=== PATIENT | female | born 1955 | race Hispanic/Latino ===

== ENCOUNTER 2018-05-27 19:50 | Emergency (ER) | payer MEDICARE, OTHER, MEDICAID ==
[2018-05-27 20:46] LABS: Bilirubin Negative (Negative); Blood, Urine Negative (Negative); Clarity CLEAR (Clear); Glucose, Urine (Dipstick) Negative (Negative); Leukocyte Moderate (Negative); Nitrite Negative (Negative); Protein, Urine (Dipstick) Negative (Neg-Trace); Specific Gravity, Urine 1.008 (1.002-1.036); Urobilinogen 0.2 mg/dL (0.2-1.0)
[2018-05-27 20:49] LABS: Bacteria/HPF None Seen HPF (None Seen); Hyaline Casts/LPF 0-3 HYALINE CAST LPF (0-3 Hyaline); Pathc Cast-AUWi Flag 0.14 (0-2.49); RBC/HPF 0-3 HPF (0-3); Squamous Epithelial 0-3 HPF (0-3)
== END 2018-05-27 21:11 | disposition home or self-care (01) ==
LOC: ERS 19:50
DX: N39.0 Urinary tract infection, site not specified (principal); I10 Essential (primary) hypertension; E11.9 Type 2 diabetes mellitus without complications; E03.9 Hypothyroidism, unspecified; F31.9 Bipolar disorder, unspecified; F17.210 Nicotine dependence, cigarettes, uncomplicated
CPT/HCPCS: 81003; 81015; 87086; 99283

== ENCOUNTER 2019-04-27 09:54 | Inpatient (IN) | payer MEDICARE, OTHER, MEDICAID ==
[2019-04-27 10:46] LABS: #Eosinphils 0.6 thou/uL (0.0-0.7); #Lymphocytes 1.7 thou/uL (1.20-3.40); #Monocytes 0.8 thou/uL (0.11-0.59); #Neutrophils 3.9 thou/uL (1.40-6.50); %Basophils 0.3 % (0.0-1.0); %Eosinophils 8.3 % (0.0-10.0); %Lymphocytes 24.6 % (21.0-51.0); %Neutrophils 55.9 % (42.0-75.0); Hemoglobin 11.8 g/dL (12.0-16.0); Mean Corpuscular HGB CONC 33.9 g/dL (32.0-36.0); Mean Corpuscular Hemoglobin 33.8 pg (27.0-31.0); Mean Corpuscular Volume 99.8 fL (78.0-98.0); Mean Platelet Volume 8.4 fL (7.4-10.4); Platelet Count 235 thou/uL (130-400); RBC Distribution Width 12.8 % (11.5-14.5); Red Blood Cell (RBC) Count 3.49 mill/uL (4.20-5.40); White Blood Cell (WBC) Count 7.1 thou/uL (4.8-10.8)
[2019-04-27 11:03] LABS: ALT (SGPT) 11 U/L (8-55); AST (SGOT) 21 U/L (5-34); Albumin 3.4 g/dL (3.4-4.8); Alkaline Phosphatase 193 U/L (40-110); Anion Gap 16 mmol/L (10-20); BUN (Urea Nitrogen) 45 mg/dL (9.8-20.1); Bilirubin, Total 0.3 mg/dL (0.2-1.2); Calc. Creatinine Clearance 0 mL/min (70-130); Calcium 9.4 mg/dL (7.8-10.44); Carbon Dioxide 24 mmol/L (23-31); Chloride 92 mmol/L (98-107); Estimated GFR-MDRD 11; Globulin 3.4 g/dL (2.4-3.5); Glucose 201 mg/dL (80-115); Potassium 5.4 mmol/L (3.5-5.1); Protein, Total 6.8 g/dL (6.0-8.3); Sodium 127 mmol/L (136-145)
--- NOTE | 2019-04-27 11:09 | RAD ---
Portable chest: HISTORY: Cough COMPARISON: 03/20/2018 FINDINGS:Borderline cardiomegaly. Vascularity is prominent. Streaky atelectasis in the mid left lung. No focal infiltrate. No effusion. IMPRESSION: No acute finding
[2019-04-27] MEDS ORDERED: Ondansetron PF 4 MG/2 ML Vial ONE (11:14)
--- NOTE | 2019-04-27 11:14 | CT ---
CT head without contrast: Multiple axial tomograms obtained through the head without IV enhancement. INDICATIONS: Fall with injury to head. Altered mental status. COMPARISON: 03/11/2009 CT head and MRI of 03/08/2009 FINDINGS: Ventricles have normal size and position. 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 This is stable. No evidence of intracranial mass, hemorrhage, edema, or infarct. Visualized sinuses and mastoids appear clear. Bony calvarium appears unremarkable. IMPRESSION: No acute finding
[2019-04-27 11:34] LABS: Bilirubin Negative (Negative); Blood, Urine Negative (Negative); Clarity Turbid (Clear); Glucose, Urine (Dipstick) Normal (Negative); Leukocyte Negative Leu/uL (Negative); Nitrite Negative (Negative); Protein, Urine (Dipstick) 10 mg/dL (Neg-Trace); Urobilinogen Normal mg/dL (Less than 2)
[2019-04-27 14:02] LABS: Troponin I 0.019 ng/mL (< 0.028)
[2019-04-27] MEDS ORDERED: Dextrose 50% Abboject 50 ML SYRINGE SLOW IVP PRN (15:24)
[2019-04-27] MEDS ORDERED: Dextrose 5% in Water 1,000 ML IV PRN (15:24)
[2019-04-27 15:59] VITALS: BMI 52.0
[2019-04-27 17:00] LABS: Potassium, Urine 43.8 mmol/L; Sodium, Urine Less than 20 mmol/L (Not Available)
[2019-04-27] MEDS: Sodium Chloride 0.9% 1,000 ML IV SCH (17:53)
--- NOTE | 2019-04-27 18:27 | HP ---
SUBJECTIVE: The patient is seen and examined in the emergency room. CHIEF COMPLAINT: Altered mental status and weakness in her lower extremities. HISTORY OF PRESENT ILLNESS: The patient is a 64-year-old female, who had a rotator cuff surgery by Dr. Lovett 2 days ago at [facility]. She did quite well after the surgery, but she started having some mental status change according to her mother. Apparently, this morning, she was quite confused, and the mother decided to call EMS and take her to the emergency room for further evaluation. She was kind of lethargic and confused. According to her, her blood glucose was about 200, and she has some wheezing and stridor bilaterally in upper lungs. Apparently, DuoNebs were used in ambulance, and her room air oxygenation was 89% and improved to 99% on 2 L by nasal cannula. The patient was taking Tylenol No. 3 since surgery, and she did not have any fever or chills, but she noticed some jerking on the whole body on and off. She denied any chest pain. She denied any shortness of breath. PAST MEDICAL HISTORY: 1. Type 2 diabetes mellitus. 2. Hypertension. 3. Hypothyroidism. PAST SURGICAL HISTORY: 1. Rotator cuff surgery on the right arm 2 days ago. 2. Lap-Band in 2005. 3. Removal of Lap-Band in 2016. 4. Left foot bone spur removal. PSYCHIATRIC HISTORY: Positive for bipolar disorder. SOCIAL HISTORY: She denies any alcohol intake, but she smokes 1 pack per day. She denies any illicit drug use. MEDICATIONS: At the time of admission: 1. Aspirin 81 mg once a day. 2. Gabapentin 100 mg 3 times a day. 3. Levothyroxine 88 mcg once a day. 4. Tylenol No. 3 one tablet, sometimes two tablets every 4 hours p.r.n. 5. Atorvastatin 20 mg at bedtime. 6. Calcitriol 0.25 mcg once a day. 7. Glipizide 10 mg once a day. 8. Losartan 25 mg once a day. 9. Metoprolol succinate extended-release 24 hours 50 mg once a day. 10. Quetiapine 400 mg, unknown frequency. ALLERGIES: LISINOPRIL, WHICH CAUSED RASH. PRIMARY CARE PHYSICIAN: Dr. Bradley. SURROGATE DECISION MAKER: The patient's mother, Mahendra Omalley. FAMILY HISTORY: Mother has arthritis. She is still alive. Father at the age of 79 of heart attack. REVIEW OF SYSTEMS: All systems were reviewed, and they are negative except for those symptoms which are mentioned at HPI. PHYSICAL EXAMINATION: VITAL SIGNS: Blood pressure is 127/77, pulse is 93, respirations 16, temperature is 98.7 orally, pain is 0, O2 saturation 95% on 4 L of oxygen. HEENT: Head is atraumatic and normocephalic. Eyes are PERRLA. Sclerae are nonicteric. Conjunctivae are pinkish. Oral mucosa is somewhat dry. NECK: Supple and obese. LUNGS: Bilateral rales and wheezes present. HEART: S1 and S2 are normal. No S3. No S4. ABDOMEN: Obese, nondistended, and nontender. Bowel sounds are present. No organomegaly. EXTREMITIES: 1+ peripheral edema, similar bilaterally on both lower extremities. NEUROLOGIC: She follows my commands. She is alert and oriented x3. There are no any motor deficits present during my evaluation. She improved significantly since the time when she had her altered mental status this morning. LABORATORY DATA: Showed white count of 7.1, hemoglobin 11.8, hematocrit 34.8, MCV 99.8, platelet count 235. Sodium of 127, potassium 5.4, chloride 92, CO2 of 24, BUN 45, creatinine 4.05, glucose 201, alkaline phosphatase 193. The rest of chemistry is within normal limits. Troponin I less than 0.010 and 0.019. Urinalysis showed clarity turbid, and the rest of the urinalysis is within normal limits. CT of the brain, no acute findings. Chest x-ray, this was personally reviewed by me, showed borderline cardiomegaly and increased vascularity in both lungs. No effusions. EKG showed normal sinus rhythm with ventricular rate of 89 beats per minute. No ischemic changes. Flipped T-waves in V1, this is isolated finding. IMPRESSION: 1. Altered mental status, improved significantly, almost back to normal status with IV hydration. 2. Dfgjn-sf-dlwoftm renal insufficiency, stage 3. 3. Hyperkalemia. 4. Hyponatremia and hypochloremia, that are related to worsening kidney function and fluid overload. 5. Macrocytic anemia. We will check vitamin B12 status and folic acid level. 6. Diabetes mellitus, type 2, uncontrolled. 7. Hypertension. 8. Hypothyroidism. PLAN: Full admission to the telemetry floor. Condition is fair. Activities, bedrest and bathroom privileges. We will do strict input and output. She received 1 L of fluids in the emergency room. We will continue 75 mL of normal saline per hour. We will do oral fluid restriction to 1000 mL. Check urine osmolality and serum osmolality along with urine lytes, and we will check folic acid and vitamin B12 levels. The case was discussed with the patient's humid system operator, Dr. Bledsoe, who is coming to see the patient tonight or tomorrow morning. She will stay on renal 2000 calories ADA diet. We will use SCDs for DVT prophylaxis, and no heparin since she has worsening renal failure. We will do Accu-Cheks a.c. and at bedtime and cover her with sliding scale, mild. We will do serial chemistry and CBCs daily. Job ID: [id number]
[2019-04-28 04:31] LABS: #Eosinphils 0.6 thou/uL (0.0-0.7); #Lymphocytes 1.3 thou/uL (1.20-3.40); #Monocytes 0.8 thou/uL (0.11-0.59); #Neutrophils 3.8 thou/uL (1.40-6.50); %Basophils 0.6 % (0.0-1.0); %Eosinophils 8.5 % (0.0-10.0); %Lymphocytes 20.4 % (21.0-51.0); %Monocytes 12.9 % (0.0-10.0); %Neutrophils 57.7 % (42.0-75.0); Hemoglobin 11.1 g/dL (12.0-16.0); Mean Corpuscular Hemoglobin 33.8 pg (27.0-31.0); Mean Platelet Volume 8.1 fL (7.4-10.4); Platelet Count 217 thou/uL (130-400); RBC Distribution Width 13.1 % (11.5-14.5); White Blood Cell (WBC) Count 6.5 thou/uL (4.8-10.8)
[2019-04-28 04:51] LABS: Anion Gap 13 mmol/L (10-20); BUN (Urea Nitrogen) 38 mg/dL (9.8-20.1); Calc. Creatinine Clearance 39 mL/min (70-130); Calcium 9.1 mg/dL (7.8-10.44); Carbon Dioxide 22 mmol/L (23-31); Chloride 105 mmol/L (98-107); Estimated GFR-MDRD 15; Glucose 120 mg/dL (80-115); Potassium 4.9 mmol/L (3.5-5.1); Sodium 135 mmol/L (136-145)
[2019-04-28] MEDS: Sodium Chloride 0.9% 1,000 ML IV SCH ×3 (06:32→20:48)
[2019-04-28] MEDS ORDERED: Famotidine 20 MG TAB PO SCH (09:00)
--- NOTE | 2019-04-28 09:51 | CON ---
DATE OF CONSULTATION: SERVICE: Renal Medicine. HISTORY OF PRESENT ILLNESS: Ms. 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 She was admitted because of mental status change and worsening renal dysfunction. Of interest, she recently had right rotator cuff surgery, and since that time, has been getting confused. My feeling is that this is related to her medications from her postop medications as well as for recent surgery. We are being consulted for her acute kidney injury on top of her chronic renal failure. This morning, the patient is more awake and alert. Empiric volume repletion has also been done with this patient. REVIEW OF SYSTEMS: Positive for decreased mentation. Positive for right shoulder joint pain. No chest pain. No shortness of breath. No nausea. No vomiting. Decreased appetite. Decreased energy level. No productive cough. No fever or chills. No dysuria. No urinary frequency. No shortness of breath or chest pain. No abdominal pain. HOME MEDICATIONS: Included the followin. Glipizide ER 10 mg q.a.m. 2. Seroquel, she is taking 400 mg in the morning and 900 mg at night. 3. Multivitamin daily. 4. Metoprolol ER 25 mg daily. 5. Calcitriol 0.25 mcg every other day. 6. Restasis eyedrop as directed. 7. Albuterol treatment p.r.n. 8. Calcium 600 mg once a day. 9. Zolpidem 10 mg at bedtime p.r.n. 10. She is also on atorvastatin 20 mg tablet at bedtime. PAST MEDICAL HISTORY: Includes the following; 1. 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 2. Morbid obesity. 3. Hypothyroidism ?.. 4. Bipolar disorder. 5. Type 2 diabetes mellitus. 6. History of ovarian cyst. PAST SURGICAL HISTORY: 1. Status post laparoscopic band surgery with subsequent removal and revision of lap band surgery. 2. Recently status post right rotator cuff surgery. 3. Also includes left foot surgery. SOCIAL HISTORY: The patient is single. No children. Lives in [facility] with her mom. Smoked one pack a day x30 years. Education, associated degree, medically disabled. No alcohol intake. No IV drug abuse. No blood transfusion. The patient has 6 siblings. ALLERGIES: NONE. TRAUMA: None. IMMUNIZATION: Up-to-date. HOSPITALIZATIONS: Please see past medical history. FAMILY HISTORY: No family history of ESRD. PHYSICAL EXAMINATION: VITAL SIGNS: The patient has a blood pressure of 110/78, heart rate 97, respiratory rate 18, temperature 98.3, and pulse ox 97%. GENERAL: The patient is awake, alert, comfortable, morbidly obese. SKIN: Adequate turgor. HEENT: Pinkish conjunctivae. Anicteric sclerae. NECK: No neck mass. No carotid bruits. No JVD. CHEST: No deformities. LUNGS: Clear breath sounds. HEART: Normal sinus rhythm. No murmur. No gallops. No rubs. ABDOMEN: Globular, soft, nontender. No masses. EXTREMITIES: No edema. No deformities. NEUROLOGIC: Awake, oriented to 3 spheres. Moving all extremities. No tremors. No asterixis. She has a right shoulder joint dressing. LABORATORY DATA: Laboratories of April 27, 2019; BUN 45, creatinine 4.05, and sodium 127. On April 28, 2019, sodium 135, potassium 4.9, chloride 105, carbon dioxide 22, BUN 38, creatinine 3.07, glucose 120, and calcium 9.1. White count 6.5, hemoglobin 11.1. IMAGING: On April 27, 2019, chest x-ray shows no CHF. CT scan of the brain shows no acute intracranial abnormality. ASSESSMENT AND PLAN: 1. Mental status change - this could be secondary from her pain medications or postop medications after her right shoulder surgery. She is mentating better now. 2. Acute kidney injury - most likely a hemodynamically-mediated renal dysfunction. Renal function was much improved with IV volume repletion. Continue current IV repletion with this patient, currently on normal saline at 75 mL/hour. Recheck basic metabolic profile in a.m. 3. Overall agree with current management. Continue current management. We will recheck basic metabolic profile in a.m. Job ID: [id number]
--- NOTE | 2019-04-28 10:29 | PDOC.HOSPP ---
- Subjective Encounter Date: 04/28/19 (f/u encephalopathy) Encounter Time: 10:27 - Objective Vital Signs & Weight: Vital Signs (12 hours) Temp Pulse Resp BP Pulse Ox 04/28/19 09:05 98.2 F 92 18 137/84 99 04/28/19 03:55 98.3 F 97 18 110/78 97 04/28/19 02:45 93 14 100 04/27/19 23:04 89 18 94 L Weight Weight 300 lb Result Diagrams: 04/28/19 04:13 04/28/19 04:13 EKG Reviewed by me: Yes (tele - sinus 80-90's) Hospitalist ROS - Review of Systems Constitutional: denies: fever, chills, sweats, weakness, malaise, other Cardiovascular: denies: chest pain, palpitations, orthopnea, paroxysmal noc. dyspnea, edema, light headedness, other Gastrointestinal: denies: nausea, vomiting, abdominal pain, diarrhea, constipation, melena, hematochezia, other - Medication Medications: Active Medications Generic Name Dose Route Start Last Admin Trade Name Freq PRN Reason Stop Dose Admin Albuterol/Ipratropium 3 ml 04/27/19 18:30 04/28/19 07:56 Duoneb NEB 3 ml [id number] ANAI Administration Famotidine 20 mg 04/28/19 09:00 04/28/19 09:16 Pepcid PO 20 mg DAILY ANAI Administration Sodium Chloride 1,000 mls @ 75 mls/hr 04/27/19 15:24 04/28/19 09:16 Normal Saline 0.9% IV 1,000 mls .[id number] ANAI Administration - Exam General Appearance: NAD Heart: RRR, no murmur Respiratory: CTAB, no wheezes, no rales, no ronchi Gastrointestinal: soft, non-tender, non-distended, normal bowel sounds Extremities: no cyanosis, no clubbing, no edema Extremities - other findings: RUE in sling Psychiatric - other findings: easily falls asleep Hosp A/P (1) Encephalopathy Code(s): G93.40 - ENCEPHALOPATHY, UNSPECIFIED Status: Acute (2) Qolhv-kw-jwyztml kidney injury Code(s): N17.9 - ACUTE KIDNEY FAILURE, UNSPECIFIED; N18.9 - CHRONIC KIDNEY DISEASE, UNSPECIFIED Status: Acute Qualifiers: Chronic kidney disease stage: stage 4 (severe) (3) Hypertension Code(s): I10 - ESSENTIAL (PRIMARY) HYPERTENSION Status: Chronic Qualifiers: Hypertension type: essential hypertension Qualified Code(s): I10 - Essential (primary) hypertension (4) Diabetes mellitus Code(s): E11.9 - TYPE 2 DIABETES MELLITUS WITHOUT COMPLICATIONS Status: Chronic Qualifiers: Diabetes mellitus type: type 2 Diabetes mellitus laborer marine terminal insulin use: without alf use Diabetes mellitus complication status: with kidney complications (5) Anemia Code(s): D64.9 - ANEMIA, UNSPECIFIED Status: Chronic Qualifiers: Chronic kidney disease stage: stage 4 (severe) (6) Hyponatremia Code(s): E87.1 - HYPO-OSMOLALITY AND HYPONATREMIA Status: Acute (7) Hypothyroid Code(s): E03.9 - HYPOTHYROIDISM, UNSPECIFIED Status: Chronic Qualifiers: Hypothyroidism type: unspecified Qualified Code(s): E03.9 - Hypothyroidism , unspecified - Plan - Encephalopathy improved- monitor, tylenol prn for pain for now Appreciate Nephrology consult - on IVF with improvement in creatinine today - hold home ARB - hold home aspirin for now DM - controlled, hold home med Hypothyroid - check TSH tomorrow HTN - controlled - resume home meds Bipolar d/o - check home dosing of seroquel - RN to do - as the one in the computer is a high dose. Resume when this is clarified PT/OT orders placed continue sling/post-op instructions for her surgery last week dvt prophy - lovenox gi prophy - on H2 swati but do not see this as a home med - will d/c code status full pt is at high risk in current condition reviewed plan of care with patient, no questions or further needs at end of eval. Addendum - RN confirmed with pharmacy that pt does take 800 mg seroquel HS - ordered
[2019-04-28] MEDS: Ondansetron PF 4 MG/2 ML Vial IVP PRN (12:10)
--- NOTE | 2019-04-28 15:53 | PDOC.EVN ---
Event Note - Event Note Event Note: Rn reports that pt continues to be drowsy and sister requesting psych consult regarding bipolar meds. Psychiatry not available. Will reduce the seroquel to 200 mg HS. Continue to optimize renal function
[2019-04-28] MEDS: HumaLOG 300 UNITS/3 ML VIAL SC PRN (18:07)
[2019-04-28] MEDS: Acetaminophen 325 MG TAB PO PRN (20:48)
[2019-04-28] MEDS: Atorvastatin Calcium 20 MG TAB PO SCH (20:49)
[2019-04-29] MEDS: Ondansetron PF 4 MG/2 ML Vial IVP PRN (01:57)
[2019-04-29] MEDS: Levothyroxine Sodium 88 MCG TAB PO SCH (06:15)
[2019-04-29] MEDS: Calcitriol 0.25 MCG CAP PO SCH (08:37)
--- NOTE | 2019-04-29 08:43 | PRG ---
DATE OF SERVICE: 04/29/2019 SUBJECTIVE: Ms. Omalley is a 64-year-old female, who was seen for her acute kidney injury on top of her chronic renal failure. She had a superimposed hemodynamically-mediated renal dysfunction. Creatinine was initially noted at 4.05, which is now improved to a most recent value of 3.07. We are continuing current IV hydration with this patient. She has had episodes of confusion, decreased mentation. Her antipsychotic medications have been adjusted downwards. Of interest, the patient also underwent a right shoulder arthroscopic surgery recently. No other complaints today. She feels tired. OBJECTIVE: VITAL SIGNS: Blood pressure 126/86, heart rate 91, respiratory rate 18, temperature 98.1, pulse ox 100%. GENERAL: Noted to be awake, alert, comfortable, not in distress. SKIN: Adequate turgor. HEENT: Pinkish conjunctivae. Anicteric sclerae. No neck mass. No carotid bruits. No JVD. CHEST: No deformities. LUNGS: Clear breath sounds. HEART: Normal sinus rhythm. No murmurs, gallops, or rubs. ABDOMEN: Globular, soft, nontender, no masses. EXTREMITIES: No edema, no deformities. MEDICATIONS: Medications of April 29, 2019, was reviewed. LABORATORY DATA: April 28, 2019, sodium 135, potassium 4.9, chloride 105, carbon dioxide 22, BUN 38, creatinine 3.07, calcium 9.1. Hemoglobin 11.1. ASSESSMENT AND PLAN: 1. Acute kidney injury on top of her chronic renal failure. She has a superimposed hemodynamically-mediated dysfunction. Improved with IV hydration. We will recheck basic metabolic profile again in a.m. Continue to hold off any diuretics or EFRAÍN inhibitors with this patient. No indication for any dialytic intervention. Her chronic renal failure is secondary from lithium nephrotoxicity. 2. Borderline anemia. We will simply observe this. 3. Decreased mentation-this could be related from her medications. Adjustment of her Seroquel has been done. Job ID: [id number] [facility]
[2019-04-29 09:10] LABS: #Eosinphils 0.3 thou/uL (0.0-0.7); #Lymphocytes 0.9 thou/uL (1.20-3.40); #Monocytes 0.4 thou/uL (0.11-0.59); #Neutrophils 2.9 thou/uL (1.40-6.50); %Basophils 0.4 % (0.0-1.0); %Lymphocytes 20.2 % (21.0-51.0); %Monocytes 8.2 % (0.0-10.0); %Neutrophils 65.2 % (42.0-75.0); Hemoglobin 11.6 g/dL (12.0-16.0); Mean Corpuscular HGB CONC 33.5 g/dL (32.0-36.0); Mean Platelet Volume 8.2 fL (7.4-10.4); Platelet Count 212 thou/uL (130-400); RBC Distribution Width 13.3 % (11.5-14.5); Red Blood Cell (RBC) Count 3.42 mill/uL (4.20-5.40); White Blood Cell (WBC) Count 4.5 thou/uL (4.8-10.8)
[2019-04-29 09:28] LABS: Anion Gap 12 mmol/L (10-20); BUN (Urea Nitrogen) 29 mg/dL (9.8-20.1); Calc. Creatinine Clearance 57 mL/min (70-130); Calcium 9.3 mg/dL (7.8-10.44); Carbon Dioxide 22 mmol/L (23-31); Chloride 114 mmol/L (98-107); Estimated GFR-MDRD 23; Glucose 168 mg/dL (80-115); Potassium 5.4 mmol/L (3.5-5.1); Sodium 143 mmol/L (136-145)
--- NOTE | 2019-04-29 09:43 | PDOC.HOSPP ---
- Subjective Encounter Date: 04/29/19 (fu encephalopathy) Encounter Time: 09:40 Subjective: called by nurse this morning for pt remaining drowsy, an episode of nausea/ vomiting last night. This morning pt is seeing images and flashes in front of her. Denies any pain. - Objective Vital Signs & Weight: Vital Signs (12 hours) Temp Pulse Resp BP Pulse Ox 04/29/19 08:42 91 146/92 H 04/29/19 07:49 98.1 F 91 18 126/86 100 04/29/19 03:28 98.2 F 92 17 126/80 95 04/29/19 02:47 85 14 94 L 04/28/19 23:08 94 14 87 L Weight Weight 300 lb I&O: 04/28/19 04/29/19 04/30/19 06:59 06:59 06:59 Intake Total 2500 Output Total 3150 Balance -650 Result Diagrams: 04/29/19 08:46 04/29/19 09:46 EKG Reviewed by me: Yes (sinus 80-90's) Hospitalist ROS - Medication Medications: Active Medications Generic Name Dose Route Start Last Admin Trade Name Freq PRN Reason Stop Dose Admin Acetaminophen 650 mg 04/27/19 15:24 04/28/19 20:48 Tylenol PO 650 mg Q4H PRN Administration Headache/Fever/Mild Pain (1-3) Albuterol/Ipratropium 3 ml 04/27/19 18:30 04/29/19 07:35 Duoneb NEB 3 ml [id number] ANAI Administration Atorvastatin Calcium 20 mg 04/28/19 21:00 04/28/19 20:49 Lipitor PO 20 mg HS ANAI Administration Calcitriol 0.25 mcg 04/29/19 09:00 04/29/19 08:37 Rocaltrol PO 0.25 mcg DAILY ANAI Administration Sodium Chloride 1,000 mls @ 75 mls/hr 04/27/19 15:24 04/28/19 20:48 Normal Saline 0.9% IV 1,000 mls .[id number] ANAI Administration Insulin Human Lispro 0 units 04/27/19 15:24 04/28/19 18:07 Humalog SC 2 unit .MILD SLIDING SCALE PRN Administration Mild Correctional Scale Levothyroxine Sodium 88 mcg 04/29/19 06:00 04/29/19 06:15 Synthroid PO 88 mcg 0600 ANAI Administration Metoprolol Succinate 50 mg 04/29/19 09:00 04/29/19 08:37 Toprol Xl PO 50 mg DAILY ANAI Administration Ondansetron HCl 4 mg 04/28/19 12:00 04/29/19 01:57 Zofran IVP 4 mg Q6H PRN Administration Nausea/Vomiting Quetiapine Fumarate 200 mg 04/28/19 21:00 04/28/19 20:49 Seroquel PO 200 mg HS ANAI Administration - Exam General Appearance: NAD General - other findings: easily falls asleep, awakes and answers appropriately Heart: RRR, no murmur Respiratory: CTAB, no wheezes, no rales, no ronchi Gastrointestinal: soft, non-tender, non-distended, normal bowel sounds Extremities - other findings: RUE in brace Neurological - other findings: no gross deficits Psychiatric - other findings: easily falling asleep, Hosp A/P (1) Encephalopathy Code(s): G93.40 - ENCEPHALOPATHY, UNSPECIFIED Status: Acute (2) Xnxou-vm-goydsoi kidney injury Code(s): N17.9 - ACUTE KIDNEY FAILURE, UNSPECIFIED; N18.9 - CHRONIC KIDNEY DISEASE, UNSPECIFIED Status: Acute Qualifiers: Chronic kidney disease stage: stage 4 (severe) (3) Hypertension Code(s): I10 - ESSENTIAL (PRIMARY) HYPERTENSION Status: Chronic Qualifiers: Hypertension type: essential hypertension Qualified Code(s): I10 - Essential (primary) hypertension (4) Diabetes mellitus Code(s): E11.9 - TYPE 2 DIABETES MELLITUS WITHOUT COMPLICATIONS Status: Chronic Qualifiers: Diabetes mellitus type: type 2 Diabetes mellitus exterminator insulin use: without exterminator use Diabetes mellitus complication status: with kidney complications (5) Anemia Code(s): D64.9 - ANEMIA, UNSPECIFIED Status: Chronic Qualifiers: Chronic kidney disease stage: stage 4 (severe) (6) Hyponatremia Code(s): E87.1 - HYPO-OSMOLALITY AND HYPONATREMIA Status: Acute (7) Hypothyroid Code(s): E03.9 - HYPOTHYROIDISM, UNSPECIFIED Status: Chronic Qualifiers: Hypothyroidism type: unspecified Qualified Code(s): E03.9 - Hypothyroidism , unspecified (8) Hyperkalemia Code(s): E87.5 - HYPERKALEMIA Status: Acute - Plan -Metabolic encephalopathy (worsening renal function with recent surgery, present on arrival) appears worse today with hallucination despite improvement in creatinine - check ABG - repeat CT scan brain - Check labs including repeat potassium as elevated today, mag michael appreciate nephrology consult - continue IVF - hold home ARB - hold home aspirin for now DM - controlled, hold home med Hypothyroid - check TSH tomorrow HTN - controlled - resume home meds Bipolar d/o -seroquel dosing lowered last night - will d/c all together given current presentation PT/OT orders placed continue sling/post-op instructions for her surgery last week - per RN bandaids over surgical incisions dvt prophy - lovenox gi prophy - on H2 swati but do not see this as a home med - will d/c code status full pt is at high risk in current condition reviewed plan of care with patient, no questions or further needs at end of eval.
[2019-04-29 09:49] LABS: RBC Morphology Normal
[2019-04-29 10:11] LABS: Base Excess (BEa) -2.1 mEq/L (-2.0 to +3.0); CO2 Tension 53.2 mmHg (35.0-45.0); Calcium, Ionized 1.23 mmol/L (1.12-1.30); Hemoglobin (Hb) 11.7 g/dL (12.0-16.0); O2 Tension (PaO2) 74.9 mmHg (> 80.0); Potassium - ABG Lab 5.14 mmol/L (3.70-5.30); pH, Arterial 7.29 (7.35-7.45)
[2019-04-29 10:12] LABS: Puncture Site RRA
--- NOTE | 2019-04-29 10:42 | CT ---
EXAM: CT brain without contrast HISTORY: Hallucinations COMPARISON: 04/27/2019 TECHNIQUE: Multiple contiguous axial images were obtained and a CT of the brain without contrast. FINDINGS: The brain is normal in morphology and attenuation without focal lesions or confluent areas of infarction. There is no evidence of hydrocephalus, intracranial hemorrhage, or extra-axial fluid collection. The calvarium and overlying soft tissues are unremarkable. The visualized paranasal sinuses and masto id air cells are well aerated. IMPRESSION: No evidence of acute intracranial abnormality
--- NOTE | 2019-04-29 11:04 | RAD ---
EXAM: Single view of the chest HISTORY: Hypoxia and somnolence COMPARISON: 04/27/2019 FINDINGS: Single view of the chest shows a normal sized cardiomediastinal silhouette. There is no marko dence of consolidation, mass, or pleural effusion. The bones are unremarkable. IMPRESSION: No evidence of acute cardiopulmonary disease
[2019-04-29 11:17] LABS: Magnesium 2.5 mg/dL (1.6-2.6); Phosphorus 3.6 mg/dL (2.3-4.7); Potassium 5.4 mmol/L (3.5-5.1)
--- NOTE | 2019-04-29 11:28 | PDOC.EVN ---
Event Note - Event Note Event Note: Multiple tests performed today to evaluate the somnolence: ABG - acidotic and mildly hypercarbic CXR - normal CT brain - neg repeat labs - potassium 5.[address] Bledsoe - he requests potassium less than 6, does not want additional meds Seroquel d/c Consult to Pulmonology for consideration of bipap for the elevated CO2 - Dr. Dong to evaluate
[2019-04-29] MEDS: Sodium Chloride 0.9% 1,000 ML IV SCH (12:15)
--- NOTE | 2019-04-29 14:18 | PQF ---
AME MCCOLLUM DENA [id number] CLINICAL DOCUMENTATION IMPROVEMENT CLARIFICATION FORM: ICD-10 Updated PLEASE DO AN ADDENDUM TO THE PROGRESS NOTE WITH ANY DOCUMENTATION UPDATES OR ADDITIONS AND CARRY THROUGH TO DC SUMMARY. THANK YOU. DATE: 04/29/2019 ATTN:DR. Marion RUSHING Please exercise your independent, professional judgment in responding to the clarification form. Clinical indicators are provided on the bottom of this form for your review. Please check appropriate box(s): Acute Encephalopathy: Etiology: [ ] Hypertensive [ XX ] Metabolic [ ] Toxic [ ] Hepatic with Coma [ ] Hepatic w/o Coma [ ] Hypoxic [ ] Septic [ ] Wernickes [ ] Drug induced: [ ] Unspecified [ ] in the setting of underlying dementia [ XX ] Other (please specify) -worsening renal function and recent surgery [ ] Other diagnosis [ ] Unable to determine In addition, please specify: Present on Admission (POA): [ XX ] Yes [ ] No [ ] Unable to determine For continuity of documentation, please document condition throughout progress notes and discharge summary. Thank You. CLINICAL INDICATORS - SIGNS / SYMPTOMS / LABS / RESULTS AND LOCATION IN EMR 04/27 ED PHYSICIAN FINAL DX: ALTERED MENTAL STATUS, ACUTE ON CHRONIC RENAL FAILURE, HYPERKALEMIA. 04/27 H &P (YULIET) HPI: PT HAD ROTATOR CUFF SURGERY 2 DAYS AGO, SHE DID QUITE WELL AFTER SURGERY BUT STARTED HAVING SOME MENTAL STATUS CHANGE ACCORDING TO HER MOTHER. SHE WAS LETHARGIC AND CONFUSED. 04/28-04/29 PN (СЕРГЕЙ) A/P: 1). ACUTE ENCEPHALOPATHY 04/[address] IMPRESSION: NO EVIDENCE OF ACUTE INTRACRANIAL ABNORMALITY 04/30 CREATININE 4.05 04/28 CREATININE 3.07 04/29 CREATININE 2.20 RISK: RECENT ROTATOR CUFF SURGERY, ACUTE ON CHRONIC KIDNEY DISEASE STAGE 4, BIPOLAR DISORDER (СЕРГЕЙ/PN ) 04/29 TREATMENTS: BRAIN CT 04/29 SERIAL LABS (04/27-PRESENT) THANK YOU! RAY (This form is maintained as a part of the permanent medical record) 2014 [employer]. All Rights Reserved [email or web address] [email or web address] [phone] [facility]
--- NOTE | 2019-04-29 14:52 | CON ---
DATE OF CONSULTATION: HISTORY OF PRESENT ILLNESS: Sharon Omalley is a 64-year-old morbidly obese female, who was admitted to the hospital with apparent mental status change. She has longstanding history of bipolar disorder, ongoing tobacco abuse, and morbid obesity. She is severely decondition, can barely walk even 50 feet on a good day without getting short of breath. She was admitted on 04/27/2019, we are being consulted on 04/29/2019 regarding ongoing encephalopathy and respiratory failure. She has seen most of her doctors at [place] and [facility] here locally. PAST MEDICAL HISTORY: Diabetes, hypothyroidism, and bipolar disorder. PAST SURGICAL HISTORY: Previous surgery including rotator cuff surgery recently, previous lap band in 2005 and removed in 2017, and foot surgery. SOCIAL HISTORY: Continues to smoke a pack a day. Alcohol, none. MEDICATIONS: She has a long list of medicine from home, which is provided on a weekly basis from her pharmacy; 1. Glipizide 10. 2. Cozaar 25. 3. Lipitor 20. 4. Seroquel apparently 200 mg at nighttime. 5. Metoprolol 50. 6. Aspirin . 7. Synthroid 88. 8. Lisinopril. REVIEW OF SYSTEMS: Otherwise, unremarkable. PHYSICAL EXAMINATION: GENERAL: She is awake, alert, responsive, answers all questions appropriately, and somewhat lethargic. VITAL SIGNS: Saturations are 100% on 3 L and decreased to 2 L, temperature 98, blood pressure 156/71, respiratory rate 18, and temperature 98. CHEST: Bilateral wheezing and rhonchi. CARDIAC: Normal S1 and S2. No gallops. ABDOMEN: Massive. NEUROLOGIC: She is awake, alert, and responsive, moves all 4 extremities. LABORATORY DATA: White count 4000, H and H 11 and 34, and platelet count is 212. A pO2 is 74, pCO2 of 53, pH of 7.29, on 3 L. Creatinine is 2, BUN is 29, and glucose is 201. Thyroid function is normal. X-ray with no acute infiltrates were seen. IMPRESSION: 1. Metabolic encephalopathy, multifactorial, probably a combination of bipolar disorder and medication. 2. Obesity hypoventilation syndrome. History of sleep apnea, apparently noncompliant. 3. Chronic obstructive pulmonary disease. 4. Hypothyroidism. 5. Renal failure. PLAN: Try and minimize medication as much as possible for her bipolar disorder. I have started her on Dulera and neb treatments on the clock, EzPAP. She may benefit from nocturnal CPAP. There clearly, she needs a formal sleep study and probably outpatient followup with her primary care physician to see whether she is a candidate for BiPAP. Obviously, she is encouraged to lose weight. I will order an ammonia level. We will discuss and follow. Job ID: [id number]
[2019-04-29] MEDS: HumaLOG 300 UNITS/3 ML VIAL SC PRN (18:02)
[2019-04-29] MEDS: Mometasone/Formoterol 120 PUFF INHALER INH SCH (19:41)
[2019-04-29] MEDS: Atorvastatin Calcium 20 MG TAB PO SCH (20:13)
[2019-04-30] MEDS ORDERED: Levothyroxine Sodium 88 MCG TAB ONE (05:47)
[2019-04-30] MEDS ORDERED: hydrALAZINE 10 MG TAB ONE (05:48)
[2019-04-30] MEDS ORDERED: Lactulose 10 GM/15 ML Oral Solution PO SCH (12:45)
--- NOTE | 2019-04-30 13:08 | PRG ---
DATE OF SERVICE: 04/30/2019 SUBJECTIVE: Ms. Omalley is a 64-year-old female, being followed up for acute kidney injury on top of her chronic renal failure. She also has intermittent confusion. This morning, she is more awake. She may be encephalopathic from her underlying psychiatric problem as well as her medications. Potassium was noted to be elevated this morning. For that reason, Kayexalate with lactulose was ordered. OBJECTIVE: VITAL SIGNS: Blood pressure is 171/93, heart rate 92, respiratory rate 20, temperature 97.8, and pulse oximetry 100%. GENERAL: The patient is awake, alert, comfortable, obese, not in distress. SKIN: Adequate turgor. HEENT: Pinkish conjunctivae. Anicteric sclerae. No neck mass. No carotid bruits. No JVD. CHEST: No deformities. LUNGS: Clear breath sounds. HEART: Normal sinus rhythm. No murmur. No gallops. No rubs. ABDOMEN: Globular, soft, nontender. No masses. EXTREMITIES: No edema. No deformities. LABORATORY STUDIES: On April 30, 2019, potassium was noted at 6.1. ASSESSMENT AND PLAN: 1. Hyperkalemia. Kayexalate with lactulose was ordered. We will be rechecking a basement later tonight. Recheck basement also in a.m. 2. 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 Please note, she had a superimposed prerenal azotemia. There is no indication for any dialytic intervention with this patient. Continue supportive care. Continue gentle volume repletion. 3. Metabolic encephalopathy - continue to observe. Slightly improved. CAT scan of the brain showed no acute intracranial abnormality. Job ID: [id number]
[2019-04-30] MEDS: Sodium Chloride 0.9% 1,000 ML IV SCH (13:20)
--- NOTE | 2019-04-30 13:45 | PRG ---
DATE OF SERVICE: 04/30/2019 SUBJECTIVE: Morbidly obese female. This morning, she is more awake, more responsive. OBJECTIVE: VITAL SIGNS: Temperature 97, pulse 92, respirations 20. She was on nasal CPAP last night with good compliance, saturations 100%, blood pressure 170/93. CHEST: Decreased breath sounds, no wheezing. CARDIAC: Normal S1, S2. No gallops. ABDOMEN: No masses. ASSESSMENT: 1. Metabolic encephalopathy, multifactorial. 2. Sleep apnea. 3. Chronic obstructive pulmonary disease. 4. Bipolar. 5. Severe deconditioning. PLAN: Minimize sedation. Continue PT, supportive care, neb treatments, nocturnal CPAP. Job ID: [id number]
[2019-04-30 13:59] LABS: #Eosinphils 0.8 thou/uL (0.0-0.7); #Lymphocytes 1.7 thou/uL (1.20-3.40); #Monocytes 0.7 thou/uL (0.11-0.59); #Neutrophils 3.9 thou/uL (1.40-6.50); %Basophils 0.2 % (0.0-1.0); %Eosinophils 11.6 % (0.0-10.0); %Lymphocytes 23.6 % (21.0-51.0); %Monocytes 9.7 % (0.0-10.0); %Neutrophils 54.9 % (42.0-75.0); Hemoglobin 11.5 g/dL (12.0-16.0); Mean Corpuscular HGB CONC 33.1 g/dL (32.0-36.0); Mean Corpuscular Hemoglobin 34.4 pg (27.0-31.0); Mean Platelet Volume 9.1 fL (7.4-10.4); Platelet Count 211 thou/uL (130-400); RBC Distribution Width 13.6 % (11.5-14.5); Red Blood Cell (RBC) Count 3.33 mill/uL (4.20-5.40)
[2019-04-30] MEDS: HumaLOG 300 UNITS/3 ML VIAL SC PRN (14:04)
[2019-04-30] MEDS: Mometasone/Formoterol 120 PUFF INHALER INH SCH ×2 (14:44→18:45)
--- NOTE | 2019-04-30 15:33 | PDOC.HOSPP ---
- Subjective Encounter Date: 04/30/19 (f/u DAGMAR) Encounter Time: 09:30 Subjective: 64 y/o female now on HD 4 for encephalopathy, acute on chronic kidney disease, s/p shoulder surgery last week with chronic bipolar disorder. Pt with somnolence through this hospital, eval by Pulmonology yesterday and started on nocturnal cpap. also followed by Dr. Bledsoe with gentle hydration and improvement in renal function. Pt c/o nausea today, decreased appetite. Feels more awake today. Denies any pain. No BM since admission but feels like she needs to go. - Objective Vital Signs & Weight: Vital Signs (12 hours) Pulse Pulse Pulse Resp BP BP Pulse Ox 04/30/19 14:42 87 16 94 L 04/30/19 12:32 90 96 158/70 H 160/76 H 04/30/19 10:46 88 20 93 L 04/30/19 08:02 87 16 98 Weight Weight 300 lb I&O: 04/29/19 04/30/19 05/01/19 06:59 06:59 06:59 Intake Total 2500 1200 Output Total 3150 2350 Balance -650 -1150 Result Diagrams: 04/30/19 05:29 04/30/19 19:17 Additional Labs: bmp 144/6.1/113/20/26/1.98/178 Ca 9.8 EKG Reviewed by me: Yes (tele - sinus 80's) Hospitalist ROS - Medication Medications: Active Medications Generic Name Dose Route Start Last Admin Trade Name Freq PRN Reason Stop Dose Admin Acetaminophen 650 mg 04/27/19 15:24 04/28/19 20:48 Tylenol PO 650 mg Q4H PRN Administration Headache/Fever/Mild Pain (1-3) Albuterol/Ipratropium 3 ml 04/29/19 14:30 04/30/19 14:42 Duoneb EZPAP 3 ml [id number] ANAI Administration Atorvastatin Calcium 20 mg 04/28/19 21:00 04/29/19 20:13 Lipitor PO 20 mg HS ANAI Administration Calcitriol 0.25 mcg 04/29/19 09:00 04/29/19 08:37 Rocaltrol PO 0.25 mcg DAILY ANAI Administration Sodium Chloride 1,000 mls @ 75 mls/hr 04/27/19 15:24 04/30/19 13:20 Normal Saline 0.9% IV 1,000 mls .[id number] ANAI Administration Insulin Human Lispro 0 units 04/27/19 15:24 04/30/19 14:04 Humalog SC 3 unit .MILD SLIDING SCALE PRN Administration Mild Correctional Scale Levothyroxine Sodium 88 mcg 04/29/19 06:00 04/29/19 06:15 Synthroid PO 88 mcg 0600 ANAI Administration Metoprolol Succinate 50 mg 04/29/19 09:00 04/29/19 08:37 Toprol Xl PO 50 mg DAILY ANAI Administration Mometasone Furoate/Formoterol Fumar 2 puff 04/29/19 18:30 04/30/19 14:44 Dulera 200 Mcg/5 Mcg Inhaler INH Not Given BID-RT ANAI Ondansetron HCl 4 mg 04/28/19 12:00 04/29/19 01:57 Zofran IVP 4 mg Q6H PRN Administration Nausea/Vomiting - Exam General Appearance: NAD Heart: RRR, no murmur Respiratory: CTAB, no wheezes, no rales, no ronchi Gastrointestinal: soft, non-tender, non-distended, normal bowel sounds Extremities: no cyanosis, no clubbing, no edema Musculoskeletal - other findings: right arm remains in a slight Psychiatric - other findings: more awake and alert today Hosp A/P (1) Encephalopathy Code(s): G93.40 - ENCEPHALOPATHY, UNSPECIFIED Status: Acute (2) [id number] kidney injury Code(s): N17.9 - ACUTE KIDNEY FAILURE, UNSPECIFIED; N18.9 - CHRONIC KIDNEY DISEASE, UNSPECIFIED Status: Acute Qualifiers: Chronic kidney disease stage: stage 4 (severe) (3) Hypertension Code(s): I10 - ESSENTIAL (PRIMARY) HYPERTENSION Status: Chronic Qualifiers: Hypertension type: essential hypertension Qualified Code(s): I10 - Essential (primary) hypertension (4) Diabetes mellitus Code(s): E11.9 - TYPE 2 DIABETES MELLITUS WITHOUT COMPLICATIONS Status: Chronic Qualifiers: Diabetes mellitus type: type 2 Diabetes mellitus mcfp insulin use: without mcfp use Diabetes mellitus complication status: with kidney complications (5) Anemia Code(s): D64.9 - ANEMIA, UNSPECIFIED Status: Chronic Qualifiers: Chronic kidney disease stage: stage 4 (severe) (6) Hyponatremia Code(s): E87.1 - HYPO-OSMOLALITY AND HYPONATREMIA Status: Acute (7) Hypothyroid Code(s): E03.9 - HYPOTHYROIDISM, UNSPECIFIED Status: Chronic Qualifiers: Hypothyroidism type: unspecified Qualified Code(s): E03.9 - Hypothyroidism , unspecified (8) Hyperkalemia Code(s): E87.5 - HYPERKALEMIA Status: Acute - Plan -Metabolic encephalopathy appears improved today - appreciate Pulmonology evaluation and initiation of cpap - repeat CT scan yesterday negative - needs sleep study as an outpatient Appreciate nephrology consult - continue IVF as prerenal DAGMAR is improved Hyperkalemia today - reviewed with Dr. Bledsoe who requested 30 grams kayexelate and 30 ml lactulose. Repeat ordered for 19:00 DM - controlled Hypothyroid - TSH slightly low - may be due to this illness - will need outpatient f/u and recheck TSH, no change to med here HTN - controlled Bipolar d/o -seroquel dosing lowered 2 nights ago and stopped last night with improvement in mentation today. Discussed with patient/her Mom and they request Transfer to [facility] for psychiatric evaluation/treatment. Pt with long hx of bipolar d/o. Given improvement today of encephalopathy - will restart half of home night dose seroquel tonight (400 mg) and order daytime dose 200 mg with hold parameters for sedation. If pt tolerates both - resume home night dose of 800 mg tomorrow night. - transfer center notified of patient's request - pt/Mom advised that this is a process between the 2 hospitals. Nausea from earlier in the day resolved - monitor. PT/OT continue sling/post-op instructions for her surgery last week - per RN bandaids over surgical incisions dvt prophy - lovenox gi prophy - not indicated code status full pt is at high risk in current condition reviewed plan of care with patient, no questions or further needs at end of eval.
[2019-04-30] MEDS: Calcitriol 0.25 MCG CAP PO SCH (16:01)
[2019-04-30] MEDS: Levothyroxine Sodium 88 MCG TAB PO SCH (16:01)
[2019-04-30] MEDS: hydrALAZINE 20 MG/ML VIAL SLOW IVP PRN (18:09)
[2019-04-30 19:41] LABS: Anion Gap 17 mmol/L (10-20); BUN (Urea Nitrogen) 26 mg/dL (9.8-20.1); Calc. Creatinine Clearance 63 mL/min (70-130); Calcium 9.8 mg/dL (7.8-10.44); Carbon Dioxide 20 mmol/L (23-31); Chloride 113 mmol/L (98-107); Estimated GFR-MDRD 26; Glucose 178 mg/dL (80-115); Potassium 6.1 mmol/L (3.5-5.1); Sodium 144 mmol/L (136-145)
[2019-04-30 19:54] LABS: Anion Gap 14 mmol/L (10-20); BUN (Urea Nitrogen) 24 mg/dL (9.8-20.1); Calc. Creatinine Clearance 70 mL/min (70-130); Calcium 9.7 mg/dL (7.8-10.44); Carbon Dioxide 23 mmol/L (23-31); Chloride 112 mmol/L (98-107); Estimated GFR-MDRD 29; Glucose 202 mg/dL (80-115); Potassium 4.5 mmol/L (3.5-5.1); Sodium 144 mmol/L (136-145)
[2019-04-30] MEDS: Atorvastatin Calcium 20 MG TAB PO SCH (20:49)
[2019-04-30] MEDS: Ondansetron PF 4 MG/2 ML Vial IVP PRN (20:49)
[2019-05-01] MEDS: hydrALAZINE 20 MG/ML VIAL SLOW IVP PRN (03:47)
[2019-05-01] MEDS: Sodium Chloride 0.9% 1,000 ML IV SCH (03:48)
[2019-05-01] MEDS: Acetaminophen 325 MG TAB PO PRN (05:46)
[2019-05-01] MEDS: Levothyroxine Sodium 88 MCG TAB PO SCH (05:46)
[2019-05-01] MEDS: Calcitriol 0.25 MCG CAP PO SCH (08:21)
[2019-05-01] MEDS: Ondansetron PF 4 MG/2 ML Vial IVP PRN (08:28)
[2019-05-01] MEDS: Mometasone/Formoterol 120 PUFF INHALER INH SCH ×2 (08:39→18:56)
--- NOTE | 2019-05-01 08:44 | PRG ---
DATE OF SERVICE: 05/01/2019 SUBJECTIVE: Ms. Omalley is a 64-year-old female, who was admitted for mental status change. This was thought to be secondary to metabolic encephalopathy as well as from her antipsychotic medications. We are following up this patient for acute kidney injury on top of her chronic renal failure. Renal function has significantly improved. She was also noted to be mildly hyperkalemic yesterday and she was given Kayexalate. She voices no other complaints today. Her mentation is improved. OBJECTIVE: VITAL SIGNS: Blood pressure is 166/79, heart rate is 95, respiratory rate 18, temperature 98.1, and pulse ox 96%. GENERAL: Awake, comfortable, not in overt distress. SKIN: Adequate turgor. HEENT: She has pinkish conjunctivae. Anicteric sclerae. No neck mass. No carotid bruits. No JVD. CHEST: No deformities. LUNGS: Clear breath sounds. No wheezing. No crackles. HEART: Normal sinus rhythm. No murmur. No gallops or rubs. ABDOMEN: Globular, soft, nontender. No masses. EXTREMITIES: No edema. No deformities. MEDICATIONS: Medications of May 01, 2019, were reviewed. LABORATORY DATA: Laboratories of April 30, 2019, white count 7, hemoglobin 11.5. On April 30, 2019, 1917 hours, sodium 144, potassium 4.5, chloride 102, carbon dioxide 23, BUN 24, creatinine 1.79, calcium 9.7. ASSESSMENT AND PLAN: 1. Acute kidney injury, superimposed prerenal azotemia, much improved with IV hydration. Continue current management. No indication for any dialytic intervention. 2. 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 She is approaching her baseline. She is currently at stage 4 chronic renal failure. 3. Decreased mentation, much improved with adjustment of her medications. 4. Bipolar disorder. Seroquel has been resumed. Job ID: [id number]
[2019-05-01 09:09] LABS: Anion Gap 14 mmol/L (10-20); BUN (Urea Nitrogen) 22 mg/dL (9.8-20.1); Calc. Creatinine Clearance 66 mL/min (70-130); Carbon Dioxide 25 mmol/L (23-31); Chloride 112 mmol/L (98-107); Estimated GFR-MDRD 29; Glucose 192 mg/dL (80-115); Potassium 4.7 mmol/L (3.5-5.1); Sodium 146 mmol/L (136-145)
--- NOTE | 2019-05-01 09:50 | PRG ---
DATE OF SERVICE: 05/01/2019 SUBJECTIVE: Sharon Omalley is much more awake and responsive. OBJECTIVE: VITAL SIGNS: Temperature 98, pulse 95, sats 97 room air, respiratory rate 16, blood pressure 166/79. CHEST: Decreased breath sounds. No wheezing. CARDIAC: Normal S1 and S2. No gallops. ABDOMEN: No mass. LABORATORY DATA: Creatinine is 1.76. Other lytes are normal. White count is normal. IMPRESSION: 1. Chronic obstructive pulmonary disease. 2. Sleep apnea. 3. Respiratory failure. 4. Metabolic encephalopathy. 5. Bipolar disorder. She is much improved. Consider outpatient sleep study. Avoid excessive sedation, neb treatments, supportive care. We will follow. Job ID: [id number]
--- NOTE | 2019-05-01 18:23 | PDOC.HOSPP ---
- Subjective Subjective: Seen and examined. Patient knows her name. Patient knows she is at [facility]. Patient does not know what brought her into the hospital or what's gone on past several days. Patient fails to understand disease pathology of hyponatremia and continues to have polydipsia patient's renal function has improved dramatically over hospitalization with presenting creatinine of 4, now down trended 1.7. Patient sodium has improved and she is even on the high side of normal now. All of patient's outpatient care is under the care of [facility] and she wishes to follow up with them in the outpatient setting when discharge. Discussion was had about transfer from acute to [facility]. Later in the evening I was paged about epigastric discomfort that was improved and resolved with belching twice. Vital signs stable. No changes on telemetry. - Objective Vital Signs & Weight: Vital Signs (12 hours) Temp Pulse Resp BP Pulse Ox 05/01/19 15:33 98.4 F 91 17 158/77 H 95 05/01/19 12:15 98.1 F 92 16 167/79 H 93 L 05/01/19 11:41 82 16 96 05/01/19 08:36 84 16 97 05/01/19 08:16 98.1 F 95 18 166/79 H 96 Weight Weight 279 lb I&O: 04/30/19 05/01/19 05/02/19 06:59 06:59 06:59 Intake Total 1200 3913 Output Total 2350 2850 Balance -1150 1063 Result Diagrams: 04/30/19 05:29 05/01/19 08:20 Radiology Reviewed by me: Yes Hospitalist ROS - Review of Systems All other systems reviewed; all pertinent +/- noted in HPI/Subj - Medication Medications: Active Medications Generic Name Dose Route Start Last Admin Trade Name Freq PRN Reason Stop Dose Admin Acetaminophen 650 mg 04/27/19 15:24 05/01/19 05:46 Tylenol PO 650 mg Q4H PRN Administration Headache/Fever/Mild Pain (1-3) Albuterol/Ipratropium 3 ml 04/29/19 14:30 05/01/19 17:10 Duoneb EZPAP Not Given [id number] ANAI Atorvastatin Calcium 20 mg 04/28/19 21:00 04/30/19 20:49 Lipitor PO 20 mg HS ANAI Administration Calcitriol 0.25 mcg 04/29/19 09:00 05/01/19 08:21 Rocaltrol PO 0.25 mcg DAILY ANAI Administration Hydralazine HCl 5 mg 04/30/19 12:37 05/01/19 03:47 Apresoline SLOW IVP 5 mg Q6H PRN Administration SBP Greater Than 180 Insulin Human Lispro 0 units 04/27/19 15:24 04/30/19 14:04 Humalog SC 3 unit .MILD SLIDING SCALE PRN Administration Mild Correctional Scale Levothyroxine Sodium 88 mcg 04/29/19 06:00 05/01/19 05:46 Synthroid PO 88 mcg 0600 ANAI Administration Metoprolol Succinate 50 mg 04/29/19 09:00 05/01/19 08:21 Toprol Xl PO 50 mg DAILY ANAI Administration Mometasone Furoate/Formoterol Fumar 2 puff 04/29/19 18:30 05/01/19 08:39 Dulera 200 Mcg/5 Mcg Inhaler INH 2 puff BID-RT ANAI Administration Ondansetron HCl 4 mg 04/28/19 12:00 05/01/19 08:28 Zofran IVP 4 mg Q6H PRN Administration Nausea/Vomiting Quetiapine Fumarate 200 mg 05/01/19 09:00 05/01/19 08:21 Seroquel PO 200 mg DAILY ANAI Administration Quetiapine Fumarate 400 mg 04/30/19 21:00 04/30/19 21:24 Seroquel PO 400 mg HS ANAI Administration - Exam General Appearance: NAD, awake alert Eye: PERRL ENT: normocephalic atraumatic, moist mucosa Neck: supple, symmetric, no lymphadenopathy Heart: RRR, no murmur, no gallops, no rubs Respiratory: CTAB, no wheezes, no rales, no ronchi, normal chest expansion Gastrointestinal: soft, non-tender, non-distended, no guarding, no rigidity Extremities: 1+ LE edema Skin: no lesions, no rashes Neurological: cranial nerve grossly intact, no focal deficits Musculoskeletal: generalized weakness Musculoskeletal - other findings: Right shoulder in sling Psychiatric: normal affect, oriented to person, oriented to place. negative: normal behavior Hosp A/P (1) [id number] kidney injury Code(s): N17.9 - ACUTE KIDNEY FAILURE, UNSPECIFIED; N18.9 - CHRONIC KIDNEY DISEASE, UNSPECIFIED Status: Acute Qualifiers: Chronic kidney disease stage: stage 4 (severe) (2) Encephalopathy Code(s): G93.40 - ENCEPHALOPATHY, UNSPECIFIED Status: Acute (3) Hyperkalemia Code(s): E87.5 - HYPERKALEMIA Status: Acute (4) Hyponatremia Code(s): E87.1 - HYPO-OSMOLALITY AND HYPONATREMIA Status: Acute (5) Anemia Code(s): D64.9 - ANEMIA, UNSPECIFIED Status: Chronic Qualifiers: Chronic kidney disease stage: stage 4 (severe) (6) Diabetes mellitus Code(s): E11.9 - TYPE 2 DIABETES MELLITUS WITHOUT COMPLICATIONS Status: Chronic Qualifiers: Diabetes mellitus type: type 2 Diabetes mellitus long term care social worker insulin use: without long term care social worker use Diabetes mellitus complication status: with kidney complications (7) Hypertension Code(s): I10 - ESSENTIAL (PRIMARY) HYPERTENSION Status: Chronic Qualifiers: Hypertension type: essential hypertension Qualified Code(s): I10 - Essential (primary) hypertension (8) Hypothyroid Code(s): E03.9 - HYPOTHYROIDISM, UNSPECIFIED Status: Chronic Qualifiers: Hypothyroidism type: unspecified Qualified Code(s): E03.9 - Hypothyroidism , unspecified - Plan Plan: medical unit with telemetry nephrology consultation, recommendations appreciated pulmonology/critical-care consultation, recommendations appreciated patient's renal function and sodium has improved dramatically with maximal medical therapy by nephrology fluid restriction patient's on CPAP QHS per pulmonology with improved symptoms, may benefit from sleep study in the outpatient setting continue current plan of care G.I. and DVT prophylaxis glucose control with sliding-scale coverage restarted on mood stabilizing medications
[2019-05-01] MEDS: HumaLOG 300 UNITS/3 ML VIAL SC PRN (18:27)
[2019-05-01] MEDS ORDERED: Sodium Chloride 0.9% 10 ML ONE (20:49)
[2019-05-01] MEDS: Atorvastatin Calcium 20 MG TAB PO SCH (21:48)
[2019-05-02] MEDS: Acetaminophen 325 MG TAB PO PRN (02:57)
[2019-05-02] MEDS: Levothyroxine Sodium 88 MCG TAB PO SCH (05:45)
[2019-05-02 07:34] LABS: Anion Gap 13 mmol/L (10-20); BUN (Urea Nitrogen) 23 mg/dL (9.8-20.1); Calc. Creatinine Clearance 64 mL/min (70-130); Calcium 9.6 mg/dL (7.8-10.44); Carbon Dioxide 25 mmol/L (23-31); Chloride 108 mmol/L (98-107); Estimated GFR-MDRD 27; Glucose 152 mg/dL (80-115); Sodium 142 mmol/L (136-145)
--- NOTE | 2019-05-02 08:34 | PRG ---
DATE OF SERVICE: 05/02/2019 SUBJECTIVE: Sharon Omalley is a 64-year-old morbidly obese female, much better, encephalopathy pretty much resolved. OBJECTIVE: VITAL SIGNS: Saturations are 92% on room air, respiratory rate 20, temperature 97, pulse 95, blood pressure 130/60. CHEST: No wheezing, crackles. CARDIAC: Normal S1, S2. No gallops. ABDOMEN: No masses. IMPRESSION: 1. Respiratory failure, multifactorial. 2. Hypoventilation syndrome. 3. Obstructive sleep apnea. 4. Chronic obstructive pulmonary disease. 5. Renal failure. 6. Bipolar. PLAN: She was requested to have an outpatient sleep study done. Otherwise, she can be discharged home any time. PT, supportive care. Job ID: [id number]
[2019-05-02] MEDS: Mometasone/Formoterol 120 PUFF INHALER INH SCH (08:55)
[2019-05-02] MEDS: Calcitriol 0.25 MCG CAP PO SCH (09:05)
--- NOTE | 2019-05-02 09:54 | PRG ---
DATE OF SERVICE: 05/02/2019 SUBJECTIVE: Ms. Omalley is a 64-year-old female, who was seen for an acute kidney injury on top of her chronic renal failure. She had a superimposed hemodynamically-mediated renal dysfunction. This improved with gentle volume repletion. In addition, her creatinine is noted to be 1.68 mg% today. She has also had intermittent confusion which is actually resolved. No complaints of chest pain or shortness of breath. OBJECTIVE: VITAL SIGNS: Blood pressure 132/60, heart rate 95, respiratory rate 20, temperature 97.9, and pulse ox 92%. GENERAL: The patient is awake, alert, comfortable, not in overt distress. SKIN: Adequate turgor. HEENT: She has pinkish conjunctivae. Anicteric sclerae. NECK: No neck mass. No carotid bruits. No JVD. CHEST: No deformities. LUNGS: Clear breath sounds. HEART: Normal sinus rhythm. No murmurs, gallops, or rubs. ABDOMEN: Globular, soft, nontender. No masses. EXTREMITIES: Trace edema. MEDICATIONS: Medications of May 02, 2019, was reviewed. LABORATORY DATA: Laboratories of April 30, 2019; hemoglobin 11.5. May 02, 2019; sodium 142, potassium 4, chloride 108, carbon dioxide 25, BUN 23, creatinine 1.86, glucose 152, calcium 9.6. ASSESSMENT AND PLAN: 1. Acute kidney injury - superimposed hemodynamically-mediated renal dysfunction. Renal function is much improved. Continue current management. 2. 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 She is near baseline. Currently, she is at stage IV chronic renal failure. Continue supportive care. Low-salt, low-protein diet. 3. Mental status change - resolved. 4. Agree with plan discharge. We will follow up this patient in the [facility]al [facility]. Job ID: [id number]
[2019-05-02 12:15] VITALS: BP 175/98; TEMP 98
--- NOTE | 2019-05-03 15:15 | DIS ---
DATE OF ADMISSION: 04/27/2019 DATE OF DISCHARGE: 05/02/2019 REASON FOR HOSPITALIZATION: Generalized weakness and altered mental status. SIGNIFICANT FINDINGS: The patient was found to be in acute renal failure and acute hyponatremia. PROCEDURES PERFORMED AND TREATMENTS RENDERED: The patient was admitted to the hospital for maximum medical therapy: Please see full history and physical, consultation notes and progress notes from all specialists and Internal Medicine for full details. The patient initially diagnosed with acute kidney injury with a creatinine of 4.05 on admission. The patient also with hyponatremia as low as 127 on admission. The patient was diagnosed with encephalopathy and confusion and this is likely secondary to a combination of metabolic encephalopathy from renal failure and hyponatremia. The patient was seen and evaluated by Pulmonology/Critical Care physician, Nephrology, and Internal Medicine - please see full consultation and progress notes for details. With maximum medical therapy by all specialists, the patient did improve and return to her normal baseline level of cognition. The patient was evaluated by Physical Therapy and Occupational Therapy, who recommended that the patient is safe for discharge home with home health care. The patient with recent shoulder surgery and is scheduled to have outpatient physical therapy and occupational therapy and she has great family support including two sisters, who are nurses and can help take care of her. The patient was recommended safe for discharge home with close followup in the outpatient setting. CONDITION ON DISCHARGE: Stable. SPECIFIC INSTRUCTIONS FOR THE PATIENT/FAMILY: 1. The patient is recommended to take all medications as directed, to be re-evaluated by primary care physician, Nephrology, and Pulmonology in the outpatient clinic in the upcoming weeks. 2. The patient is recommended to follow up with primary care physician in the next 5 to 7 days - or return to acute care hospital immediately for re-evaluation. 3. The patient is recommended to follow up with Nephrology in the next 1 to 2 weeks - or return to acute care hospital immediately for re-evaluation. 4. The patient is recommended to follow up with Pulmonology in the outpatient clinic in the next 2 to 3 weeks and would benefit from sleep study at this time - or return to acute care hospital immediately for re-evaluation. 5. The patient is recommended to avoid overt water consumption and recommended to follow fluid restrictions implemented by Nephrology. I explicitly informed her that if she starts drinking gallons and gallons of water, she will end up with worsening hyponatremia and be back to the hospital with altered mental status again, the patient understands these risk factors and acknowledges that she will restrict her fluids as able. 6. The patient is recommended to return to acute care hospital immediately if signs or symptoms return, worsen, or any other new symptoms occur. DISCHARGE MEDICATIONS: Please see full discharge medication list for details. 1. Multivitamin one tablet p.o. daily. 2. Glipizide extended release 10 mg one tablet p.o. daily. 3. Losartan 25 mg one tablet p.o. daily. 4. Atorvastatin 20 mg one tablet p.o. at bedtime. 5. Seroquel 400 mg at bedtime. 6. Seroquel 200 mg q.a.m. 7. Levothyroxine 88 mcg one tablet p.o. daily. 8. Aspirin 325 mg one tablet p.o. daily. 9. Calcitriol 0.25 mcg one tablet p.o. daily. 10. Metoprolol succinate XL 50 mg one tablet p.o. daily. 11. Tylenol with codeine No. 3 one to two tabs p.o. q.6 hours p.r.n. severe pain. 12. Dulera 200 mcg/5 mcg inhaler two puffs p.o. b.i.d., rinse mouth afterwards. Greater than 37 minutes spent coordinating care and discharge process for this patient. Job ID: [id number]
== END 2019-05-02 13:24 | disposition home or self-care (01) | DRG 682 ==
LOC: ERS 09:54 → 2NO 14:37
PROVIDERS: ADMIT Internal Medicine; ATTEND Internal Medicine
PROC: 5A09457 Assistance with Respiratory Ventilation, 24-96 Consecutive Hours, Continuous Positive Airway Pressure (ICD-10-PCS; principal; 2019-04-29)
DX: N17.9 Acute kidney failure, unspecified (principal); G93.41 Metabolic encephalopathy; J96.92 Respiratory failure, unspecified with hypercapnia; E87.1 Hypo-osmolality and hyponatremia; E66.2 Morbid (severe) obesity with alveolar hypoventilation; Z68.43 Body mass index [BMI] 50.0-59.9, adult; N18.4 Chronic kidney disease, stage 4 (severe); E11.22 Type 2 diabetes mellitus with diabetic chronic kidney disease; E03.9 Hypothyroidism, unspecified; F31.9 Bipolar disorder, unspecified; E87.5 Hyperkalemia; E87.8 Other disorders of electrolyte and fluid balance, not elsewhere classified; E87.70 Fluid overload, unspecified; E11.65 Type 2 diabetes mellitus with hyperglycemia; J44.9 Chronic obstructive pulmonary disease, unspecified; D63.1 Anemia in chronic kidney disease; F17.210 Nicotine dependence, cigarettes, uncomplicated; I10 Essential (primary) hypertension; Z79.82 Long term (current) use of aspirin; Z79.890 Hormone replacement therapy; Z79.4 Long term (current) use of insulin; Z79.899 Other long term (current) drug therapy; Z88.8 Allergy status to other drugs, medicaments and biological substances
CPT/HCPCS: 36415; 36416; 51701; 70450; 71045; 80048; 80053; 81003; 82140; 82436; 82607; 82746; 82805; 82947; 83735; 83930; 83935; 84100; 84133; 84300; 84443; 84484; 85025; 93005; 94640; 94660; 96361; 96374; A4353; J0360; J2405; J7620

== ENCOUNTER 2019-05-06 10:15 | Emergency (ER) | payer MEDICARE, OTHER, MEDICAID ==
[2019-05-06] MEDS ORDERED: Lorazepam 1 MG TAB ONE (11:24)
[2019-05-06] MEDS ORDERED: Acetaminophen 500 MG TAB ONE (11:28)
--- NOTE | 2019-05-06 11:59 | RAD ---
XR Chest Pa Lat STANDARD History: Altered mental status Comparison: Radiograph April 29, 2019 Findings: Lungs are clear. No pneumothorax or effusion. Cardiac silhouette and mediastinal contours a re within normal limits. No acute osseous abnormality. Surgical marjan project over the right shoulder. Concern for right shoulder joint effusion. Impression: No acute intrathoracic abnormality.
--- NOTE | 2019-05-06 12:03 | CT ---
EXAM: CT brain without contrast HISTORY: Mental status changes COMPARISON: 04/29/2019 TECHNIQUE: Multiple contiguous axial images were obtained and a CT of the brain without contrast. FINDINGS: The brain is normal in morphology and attenuation without focal lesions or confluent areas of infarction. There is no evidence of hydrocephalus, intracranial hemorrhage, or extra-axial fluid collection. The calvarium and overlying soft tissues are unremarkable. The visualized paranasal sinuses and masto id air cells are well aerated. IMPRESSION: No evidence of acute intracranial abnormality
[2019-05-06 12:15] LABS: Hemoglobin 13.7 g/dL (12.0-16.0); Mean Corpuscular HGB CONC 31.8 g/dL (32.0-36.0); Mean Corpuscular Hemoglobin 32.5 pg (27.0-31.0); Mean Platelet Volume 8.6 fL (7.4-10.4); Platelet Count 231 thou/uL (130-400); RBC Distribution Width 13.2 % (11.5-14.5); Red Blood Cell (RBC) Count 4.22 mill/uL (4.20-5.40); White Blood Cell (WBC) Count 10.2 thou/uL (4.8-10.8)
[2019-05-06 12:34] LABS: Band 3 % (5-11); Lymphocytes 12 % (21-51); MDiff Complete? YES; Monocytes 6 % (0-10); Neutrophil 78 % (42-75); RBC Morphology Normal; Reactive Lymphocytes 1 % (0-10)
[2019-05-06 12:37] LABS: Bilirubin Negative (Negative); Blood, Urine Trace (Negative); Clarity Clear (Clear); Glucose, Urine (Dipstick) Normal (Negative); Leukocyte Negative Leu/uL (Negative); Nitrite Negative (Negative); Protein, Urine (Dipstick) 200 mg/dL (Neg-Trace); RBC/HPF 0-3 HPF (0-3); Squamous Epithelial None Seen HPF (0-3); Urobilinogen Normal mg/dL (Less than 2); WBC/HPF 0-3 HPF (0-3)
[2019-05-06 12:44] LABS: ALT (SGPT) 21 U/L (8-55); AST (SGOT) 27 U/L (5-34); Acetaminophen Less than 6.0 mcg/mL (10.0-30.0); Albumin 4.2 g/dL (3.4-4.8); Alcohol Less than 10 mg/dL (Less than 10); Alkaline Phosphatase 214 U/L (40-110); Anion Gap 18 mmol/L (10-20); BUN (Urea Nitrogen) 23 mg/dL (9.8-20.1); Bilirubin, Total 0.4 mg/dL (0.2-1.2); CK (CPK) 214 U/L (29-168); Calc. Creatinine Clearance 0 mL/min (70-130); Calcium 9.9 mg/dL (7.8-10.44); Carbon Dioxide 21 mmol/L (23-31); Chloride 113 mmol/L (98-107); Estimated GFR-MDRD 21; Globulin 3.6 g/dL (2.4-3.5); Glucose 202 mg/dL (80-115); Protein, Total 7.8 g/dL (6.0-8.3); Salicylate Less than 8.0 mg/dL (15.0-30.0); Sodium 148 mmol/L (136-145)
[2019-05-06 12:48] LABS: Bacteria/HPF Rare-Few HPF (None Seen)
[2019-05-06] MEDS ORDERED: Lorazepam 2 MG/ML VIAL ONE ×2 (12:55→17:58)
[2019-05-06] MEDS ORDERED: diphenhydrAMINE 50 MG/ML VIAL ONE (12:55)
[2019-05-06] MEDS ORDERED: Midazolam HCl 2 mg/2 ml Vial ONE (12:55)
[2019-05-06] MEDS ORDERED: Haloperidol Lactate 5 MG/ML VIAL ONE ×2 (12:55→12:57)
[2019-05-06 13:02] LABS: Amphetamine Not Detected (NotDetected); Barbiturates Screen Not Detected (NotDetected); Benzodiazepine Screen Not Detected (NotDetected); Cocaine Metabolite Screen Not Detected (NotDetected); Medtox Control Line Valid? VALID (VALID); Medtox Reader # READER 4; Methadone Not Detected (NotDetected); Methamphetamine Not Detected (NotDetected); Opiate Screen Not Detected (NotDetected); Oxycodone Screen Not Detected (NotDetected); Phencyclidine (PCP) Not Detected (NotDetected); THC/Cannabinoid Screen Not Detected (NotDetected); Tricyclic Screen Not Detected (NotDetected)
== END 2019-05-06 21:22 ==
LOC: ERS 10:15
DX: F23 Brief psychotic disorder (principal); E11.9 Type 2 diabetes mellitus without complications; E03.9 Hypothyroidism, unspecified; I10 Essential (primary) hypertension; F31.9 Bipolar disorder, unspecified; F17.210 Nicotine dependence, cigarettes, uncomplicated; Z79.82 Long term (current) use of aspirin; Z79.899 Other long term (current) drug therapy
CPT/HCPCS: 36415; 36416; 70450; 71046; 80053; 80306; 80307; 81003; 81015; 82550; 84443; 85025; 96372; J1200; J1630; J2060; J2250